=== PATIENT | female | born 1970 | race Asian ===

== ENCOUNTER 2023-11-28 09:37 | Outpatient (RCR) | payer BC, SELFPAY ==
[2023-11-28 11:07] LABS: Creatinine* 0.4 mg/dL (0.5-1.5); Est. Creatinine Clearance* 118.17; Estimated Glomerular Filt Rate 119 ml/min
--- NOTE | 2023-11-28 11:15 | ONC.NURNOTE ---
patient here for port access and blood draw for radiation simulation Port placed on 07/11/2023 at [facility]--Identified with 3 bumps-power port-- Placement of a 6 [place] Island[place] right IJ power port Scanned in to medical records
[2023-11-28] MEDS: SODIUM CHLORIDE 0.9 % (FLUSH) 10 ML SYRINGE IVF (11:18)
[2023-11-28] MEDS: HEPARIN 500 UNIT/5 ML SYRINGE IVF (11:18)
== END 2024-05-26 23:59 | disposition home or self-care (01) ==
LOC: CCIC 09:37
PROVIDERS: PCP Family Medicine; Visit Provider Clinical Nurse Specialist
DX: C20 Malignant neoplasm of rectum (principal)
CPT/HCPCS: 36415; 36591; 82565; J1642